=== PATIENT | female | born 1995 | race Caucasian/White ===

== ENCOUNTER 2021-07-26 15:00 | Inpatient (IN) | payer OTHER ==
[~2021-07-26] VITALS: Ht 154.9 cm; Wt 76.7 kg
[~2021-07-26 15:00] MED LIST: TUSSI PRES-B L120 M1 PO; ZITHROMAX TRI-500 MG PO
[2021-08-06] MEDS ORDERED: PRENATAL TABLE1 EAC1 PO (13:16)
== END 2021-08-10 14:25 | disposition home or self-care (01) | DRG 788 ==
LOC: OB/GYN 08-06 11:14 → LDR 08-06 11:14 → OB/GYN 08-07 20:05 → O/R 08-10 09:38 → OB/GYN 08-10 09:41
PROVIDERS: ADMIT Obstetrics & Gynecology; ATTEND Obstetrics & Gynecology
PROC: 10D00Z1 Extraction of Products of Conception, Low, Open Approach (ICD-10-PCS; principal; 2021-08-06)
PROC: 3E0P7VZ Introduction of Hormone into Female Reproductive, Via Natural or Artificial Opening (ICD-10-PCS; 2021-08-06)
PROC: 4A1HXFZ Monitoring of Products of Conception, Cardiac Rhythm, External Approach (ICD-10-PCS; 2021-08-06)
DX: O61.0 Failed medical induction of labor (principal); O65.8 Obstructed labor due to other maternal pelvic abnormalities; O99.824 Streptococcus B carrier state complicating childbirth; Z37.0 Single live birth; Z3A.39 39 weeks gestation of pregnancy